=== PATIENT | female | born 1940 | race Caucasian/White ===

== ENCOUNTER 2016-09-27 23:40 | Inpatient (IN) | payer MEDICARE, OTHER ==
[~2016-09-27] VITALS: Ht 167.6 cm; Wt 75.6 kg
[2016-09-28] VITALS (10 sets, daily range): BP systolic 106–140; BP diastolic 56–78; PULSE 66–95; TEMP 98.2–98.4
[2016-09-28] MEDS ORDERED: THE MEDICINE S200 M2 PO (00:59)
[2016-09-28] MEDS ORDERED: OCUVITE1 TA1 PO (01:09)
[2016-09-28] MEDS ORDERED: CREON 120000 U-1 ECC PO (01:10)
[2016-09-28 01:35] LABS: BASO # 0.1 (0.0-0.2); BASO % 0.7 % (0.0-2.0); EOS # 0.3 (0.0-0.7); EOS % 1.9 % (0-4.0); GRAN # 9.7 (1.4-6.5); GRAN % 72.3 % (42.2-75.2); HEMATOCRIT 40.6 % (37.0-47.0); HEMOGLOBIN 13.9 g/dl (12.5-16.0); LYMPH # 2.4 (1.2-3.4); LYMPH % 17.6 % (20.0-51.0); MEAN CELL VOLUME 90 fl (80.0-100.0); MEAN CORPUSCULAR HEMOGLOBIN 31 pg (27.0-31.0); MEAN CORPUSCULAR HGB CONC 34 g/dl (33.0-37.0); MEAN PLATELET VOLUME 10.4 fl (7.4-10.4); MONO % 7.1 % (1.7-9.3); REDCELL DISTRIBUTION WIDTH-CV 12.9 % (11.5-14.5); WHITE BLOOD COUNT 13.4 K/mm3 (4.8-10.8)
[2016-09-28 01:39] LABS: INR 1.1 (0.8-3.0); PLATELET COUNT 215 K/mm3 (130-400); PROTHROMBIN TIME 11.8 SECONDS (9.7-12.8)
[2016-09-28 01:46] LABS: ADJUSTED CALCIUM 8.9 mg/dL (8.4-10.2); BILIRUBIN,TOTAL 0.9 mg/dL (0.0-1.0); CALCIUM 8.9 mg/dL (8.4-10.2); CREATININE, serum 0.68 mg/dL (0.52-1.25); POTASSIUM 3.9 mmol/L (3.4-5.0); TOTAL PROTEIN 7.8 gm/dL (6.4-8.2)
[2016-09-28 03:17] LABS: PH 6 (5-8); SQUAMOUS EPITHELIAL 0-2 /hpf; URINE APPEARANCE Clear; URINE BACTERIA None Seen /hpf; URINE BILIRUBIN Negative (NEGATIVE); URINE BLOOD Negative (NEGATIVE); URINE COLOR Yellow; URINE GLUCOSE Negative (NEGATIVE); URINE KETONE Negative (NEGATIVE); URINE RBC 0-2 /hpf; URINE UROBILINOGEN Negative (NEGATIVE)
[2016-09-28 03:34] LABS: URINE WBC 0-2 /hpf
[2016-09-29 04:17] VITALS: BP 111/62; PULSE 75; TEMP 97.5
[2016-09-29 07:55] LABS: HEMATOCRIT 39.1 % (37.0-47.0); HEMOGLOBIN 13.4 g/dl (12.5-16.0)
[2016-09-29 10:49] VITALS: BP 109/55; PULSE 82; TEMP 98.4
[2016-09-29 15:56] VITALS: BP 126/58; PULSE 88; TEMP 97.7
[2016-09-29] MEDS ORDERED: XARELTO10 MG PO (16:45)
[2016-09-29] MEDS ORDERED: OYSCO 500500 M1 PO (16:46)
[2016-09-29] MEDS ORDERED: SENOKOT S 50 MG1 TAB PO (16:47)
[2016-09-29] MEDS ORDERED: VTAMINC250TA PO (16:47)
[2016-09-29] MEDS ORDERED: MILK OF MA400 MG/5 M PO (16:48)
[2016-09-29] MEDS ORDERED: NORCO 325 MG-51 TAB PO (16:48)
[2016-09-29] MEDS ORDERED: DULCOLAX S10 MG/SUPP RC (16:49)
[2016-09-29 18:36] VITALS: BP 111/63; PULSE 77; TEMP 97.7
[2016-09-29 21:35] VITALS: BP 127/60; PULSE 71; TEMP 98.1
[2016-09-30 01:52] VITALS: BP 125/64; BP 130/63; PULSE 78; PULSE 81; TEMP 98.2
[2016-09-30 05:08] VITALS: BP 129/74; PULSE 75; TEMP 97.5
[2016-09-30 06:03] LABS: HEMATOCRIT 38.5 % (37.0-47.0); HEMOGLOBIN 13.1 g/dl (12.5-16.0)
[2016-09-30 10:17] VITALS: BP 134/65; PULSE 74; TEMP 98.4
[2016-09-30 14:29] VITALS: BP 127/72; PULSE 90; TEMP 98.1
[2016-09-30 18:06] VITALS: BP 130/73; PULSE 87; TEMP 98.6
[2016-09-30 22:57] VITALS: BP 128/64; PULSE 90; TEMP 98.3
[2016-10-01 05:13] VITALS: BP 126/60; PULSE 85; TEMP 98.5
[2016-10-01 08:03] LABS: HEMATOCRIT 37.8 % (37.0-47.0); HEMOGLOBIN 12.9 g/dl (12.5-16.0)
[2016-10-01 10:50] VITALS: BP 126/60; PULSE 85; TEMP 98.5
[2016-10-01 10:52] VITALS: BP 147/7; BP 147/77; PULSE 96; TEMP 98.4
== END 2016-10-01 12:15 | disposition swing bed (61) | DRG 482 ==
LOC: SURG 23:40
PROVIDERS: Nurse Practitioner Family; Orthopaedic Surgery
PROC: 0QS704Z Reposition Left Upper Femur with Internal Fixation Device, Open Approach (ICD-10-PCS; principal; 2016-09-28 14:00)
DX: S72.012A Unspecified intracapsular fracture of left femur, initial encounter for closed fracture (principal); W18.09XA Striking against other object with subsequent fall, initial encounter; M06.9 Rheumatoid arthritis, unspecified; Z85.3 Personal history of malignant neoplasm of breast
CPT/HCPCS: 99223-AI; 99232-AI; 99239; A9284; C1713; C1776; J0690; J1100; J2250; J2270; J2405; J2704; J3010; J7120